=== PATIENT | male | born 1970 | race Caucasian/White ===

== ENCOUNTER 2017-12-17 12:46 | Outpatient (CLI) | payer MEDICARE, MEDICAID ==
--- NOTE | 2017-12-17 13:31 | RAD ---
RADIOGRAPH CHEST 2 VIEWS: Date: 12-17-17 Time: 1:03 p.m. HISTORY: 47-year-old male with R91.8 other nonspecific abnormal finding of lung field. COMPARISON: None available. FINDINGS: There is a right internal jugular implantable vascular access port with distal tip at the upper porti on of the right atrium. There is silhouetting of the left cardiac shadow with associated adjacent cur vilinear densities which may represent scar tissues at the lingula and/or a paracardial fat pad. Card iac size is at the upper limits of normal. The lungs are hypoinflated. No consolidation, pleural effu juarez, or pneumothorax. IMPRESSION: 1. Scar versus paracardial fat pad silhouetting the cardiac apex. 2. Implantable vascular access port on the right side. 3. No convincing evidence of pneumonia. THOMAS POS: [place]
== END 2017-12-17 12:47 | disposition home or self-care (01) ==
LOC: RAD 12:46
PROVIDERS: ATTEND Thoracic Surgery (Cardiothoracic Vascular Surgery)
DX: R91.8 Other nonspecific abnormal finding of lung field (principal); Z95.828 Presence of other vascular implants and grafts
CPT/HCPCS: 71046